=== PATIENT | male | born 1995 | race Hispanic/Latino ===

== ENCOUNTER 2020-07-25 11:37 | Day surgery (SDC) | payer BC, OTHER, SELFPAY ==
[2020-07-25] MEDS ORDERED: traMADol HCl 50 MG TAB ONE (14:11)
[2020-07-25 14:38] LABS: #Eosinphils 0.1 thou/uL (0.0-0.7); #Lymphocytes 1.3 thou/uL (1.20-3.40); #Monocytes 0.8 thou/uL (0.11-0.59); #Neutrophils 9.4 thou/uL (1.40-6.50); %Basophils 0.1 % (0.0-1.0); %Eosinophils 0.5 % (0.0-10.0); %Lymphocytes 11.2 % (21.0-51.0); %Monocytes 7.2 % (0.0-10.0); Hemoglobin 15.1 g/dL (14.0-18.0); Mean Corpuscular HGB CONC 34.9 g/dL (32.0-36.0); Mean Corpuscular Hemoglobin 33.5 pg (27.0-31.0); Mean Corpuscular Volume 96.1 fL (78.0-98.0); Mean Platelet Volume 8.5 fL (7.4-10.4); Platelet Count 190 thou/uL (130-400); RBC Distribution Width 11.2 % (11.5-14.5); Red Blood Cell (RBC) Count 4.51 mill/uL (4.70-6.10); White Blood Cell (WBC) Count 11.6 thou/uL (4.8-10.8)
[2020-07-25 16:18] LABS: SARS-CoV-2 NAA Rapid Test Not Detected (NotDetected)
[2020-07-25] MEDS ORDERED: Bupivacaine PF 0.5% 30 ML VIAL ONE ×2 (18:39→19:29)
[2020-07-25] MEDS ORDERED: Sodium Chloride 0.9% 0 ML ONE (18:39)
[2020-07-25] MEDS ORDERED: Bacitracin Zinc Ointment 30 gm TUBE ONE ×2 (18:39→19:29)
[2020-07-25] MEDS ORDERED: Thrombin 5000 UNITS/5 ML VIAL ONE (19:29)
[2020-07-25] MEDS ORDERED: Sodium Chloride 0.9% 30 ML ONE (19:29)
[2020-07-25] MEDS ORDERED: Fentanyl 100 MCG/2 ML VIAL ONE ×4 (19:37→21:56)
[2020-07-25] MEDS ORDERED: Midazolam HCl 2 mg/2 ml Vial ONE (19:50)
[2020-07-25] MEDS ORDERED: Esmolol 100 MG/10 ML VIAL ONE (20:00)
[2020-07-25] MEDS ORDERED: PROPOFOL 200 MG/20 ML VIAL ONE (20:00)
[2020-07-25] MEDS ORDERED: Ondansetron PF 4 MG/2 ML Vial ONE (20:00)
[2020-07-25] MEDS ORDERED: Dexamethasone 20 MG/5 ML VIAL ONE (20:00)
[2020-07-25] MEDS ORDERED: Lidocaine 1% PF 5 ML VIAL ONE (20:00)
[2020-07-25] MEDS ORDERED: Bisacodyl 10 MG SUPP PR PRN (21:07)
[2020-07-25] MEDS ORDERED: Promethazine HCl 25 MG/ML VIAL IM PRN (21:07)
[2020-07-25] MEDS ORDERED: HYDROcodone/Acetaminophen 5/325 mg Tablet PO PRN (21:07)
[2020-07-25] MEDS ORDERED: Ondansetron PF 4 MG/2 ML Vial IVP PRN (21:07)
[2020-07-25] MEDS ORDERED: Morphine 4 MG/ML VIAL SLOW IVP PRN (21:07)
[2020-07-25] MEDS ORDERED: Ketorolac Tromethamine 30 MG/ML VIAL IVP PRN (21:12)
[2020-07-25] MEDS ORDERED: Meperidine HCl/PF 25 MG/ML VIAL IM PRN (21:12)
[2020-07-25] MEDS ORDERED: Sodium Chloride 0.9% 1,000 ML IV SCH (21:15)
[2020-07-25] MEDS ORDERED: [UNRECOGNIZED DRUG - REMARK] FS SCH (21:15)
[2020-07-25] MEDS ORDERED: Ketorolac Tromethamine 30 MG/ML VIAL ONE (21:38)
[2020-07-25] MEDS ORDERED: Ampicillin/Sulbactam 3 GM in Sodium Chloride 0.9% 100 ML IVPB SCH (22:00)
[2020-07-25] MEDS ORDERED: Vancomycin 1 GM in Premix Bag 1 BAG IVPB SCH (22:00)
[2020-07-25] MEDS ORDERED: Ketorolac Tromethamine 30 MG/ML VIAL IVP SCH (23:59)
[2020-07-26] MEDS ORDERED: Aspirin 81 mg Enteric Coated Tablet PO SCH (09:00)
[2020-07-26] MEDS ORDERED: TETANUS AND DIPHTHERIA TOX/PF 0.5 ML DISP.SYRIN IM SCH (09:00)
== END 2020-07-25 23:18 | disposition short-term general hospital (02) ==
LOC: ERS 11:37 → SDC/OP 17:51
PROVIDERS: ATTEND Orthopaedic Surgery Hand Surgery
PROC: 0H9FXZZ Drainage of Right Hand Skin, External Approach (ICD-10-PCS; principal; 2020-07-25)
PROC: 0R9U0ZZ Drainage of Right Metacarpophalangeal Joint, Open Approach (ICD-10-PCS; principal; 2020-07-25)
DX: S61.204A Unspecified open wound of right ring finger without damage to nail, initial encounter (principal); L02.511 Cutaneous abscess of right hand; W51.XXXA Accidental striking against or bumped into by another person, initial encounter; Z20.828 Contact with and (suspected) exposure to other viral communicable diseases
CPT/HCPCS: 36415; 85025; 85652; 86140; 87070; 87077; 87205; 96365; J0295; J0690; J1100; J1885; J2250; J2405; J2704; J3010; J3370; J3490; S0020; U0002